=== PATIENT | male | born 2000 ===

== ENCOUNTER 2024-08-22 16:57 | Emergency (ER) | payer BC ==
[2024-08-22] MEDS: Lidocaine 1% 5 ML VIAL INJECT ONE (19:17)
[2024-08-22] MEDS: Diphtheria,Pertussis(Acell),Tetanus Vaccine 0.5 ML Syringe IM ONE (19:17)
== END 2024-08-22 19:20 | disposition home or self-care (01) ==
LOC: MW.ED 16:57
DX: S61.211A Laceration without foreign body of left index finger without damage to nail, initial encounter (principal); W29.0XXA Contact with powered kitchen appliance, initial encounter
CPT/HCPCS: 12001; 73140; 99283; J2003; 90471